=== PATIENT | female | born 1980 | race African-American/Black ===

== ENCOUNTER 2022-02-17 22:27 | Emergency (ER) | payer MEDICAID ==
[~2022-02-17] VITALS: Ht 162.6 cm; Wt 72.6 kg
[2022-02-17] MEDS ORDERED: BACITRACIN 15GM TUBE TOP ONE (22:45)
[2022-02-18] MEDS ORDERED: BACITRACIN ZINC OINT UDPKT TOP NR (00:30)
[2022-02-18] MEDS ORDERED: ACETAMINOPHEN 500MG TABLET PO ONE (00:45)
[2022-02-18] MEDS ORDERED: LEVOTHYROXINE SODIUM 112MCG TABLET PO ONE (01:30)
[2022-02-18] MEDS ORDERED: NICOTINE 7MG PATCH TD ONE (09:45)
[2022-02-18 12:36] VITALS: BP 120/60
== END 2022-02-18 12:41 | disposition home or self-care (01) ==
LOC: ER 22:31
DX: S01.511A Laceration without foreign body of lip, initial encounter (principal); S00.81XA Abrasion of other part of head, initial encounter; S60.811A Abrasion of right wrist, initial encounter; I10 Essential (primary) hypertension; Z88.6 Allergy status to analgesic agent; Y04.0XXA Assault by unarmed brawl or fight, initial encounter; Y07.03 Male partner, perpetrator of maltreatment and neglect; Y93.89 Activity, other specified; Y92.018 Other place in single-family (private) house as the place of occurrence of the external cause
CPT/HCPCS: 71045; 99285